=== PATIENT | male | born 1975 | race Caucasian/White ===

== ENCOUNTER 2022-09-27 01:42 | Emergency (ER) | payer OTHER, SELFPAY ==
[2022-09-27 01:50] VITALS: BP 126/80; PULSE 70; RESP 18; TEMP 36.6; O2SAT 99
--- NOTE | 2022-09-27 01:51 | ED_ITS ---
HPI - URI/Sore Throat General Chief Complaint: Upper Respiratory Symptoms Stated Complaint: THROAT HURTS Time Seen by Provider: 09/27/22 01:50 History of Present Illness HPI Narrative: Patient complains of sore throat for the past 1 week. Worsening in the past couple of days. No trouble breathing. Hurts to eat and swallow. Has had some congestion as well. Has had mild cough as well. Still has his tonsils. No known sick contacts Related Data Previous Rx's Medication Instructions Recorded amoxicillin 500 mg capsule 500 mg PO BID #14 caps 09/27/22 Allergies Allergy/AdvReac Type Severity Reaction Status Date / Time No Known Drug Allergies Allergy Verified 09/27/22 02:02 Review of Systems Review of Systems Narrative: GENERAL: Denies chills, fatigue, malaise, fever, sweats. HEENT: Denies sinus pain, ear pain, positive nasal congestion and sore throat RESPIRATORY: Denies dyspnea, positive cough CARDIOVASCULAR: Denies chest pain, palpitations GASTROINTESTINAL: Denies nausea, vomiting, abdominal pain : Denies dysuria, frequency, hematuria MUSCULOSKELETAL: denies muscle or bony pain SKIN: Denies rash, skin lesions NEUROLOGIC: Denies weakness, numbness ROS Unobtainable: All systems reviewed & are unremarkable except as noted in HPI and below Exam Narrative Exam Narrative: GENERAL: in no distress, not toxic not dyspneic HEAD: Normocephalic. EYES: Pupils equal round No scleral icterus. ENT: Mucous membranes moist. There is bilateral symmetric pharyngeal erythema and edema without exudates. No midline shift. No tongue elevation no drooling no trismus no malocclusion NECK: Trachea midline. No stridor CARDIOVASCULAR: Regular rate and rhythm without murmurs RESPIRATORY: Clear to auscultation. Breath sounds equal bilaterally. No wheezes, rales, or rhonchi. NEURO: AOx4. SKIN: Warm and dry PSYCH: Not anxious, is cooperative Initial Vital Signs Initial Vital Signs: Vital Signs Temperature 98 F 09/27/22 01:50 Pulse Rate 70 09/27/22 01:50 Respiratory Rate 18 09/27/22 01:50 Blood Pressure 126/80 09/27/22 01:50 Pulse Oximetry 99 09/27/22 01:50 Oxygen Delivery Method 09/27/22 01:50 Course Course Course Narrative: No new issues during course of stay Orders Ordered: ED Orders 09/27/22 01:55 Throat Culture Stat Discontinued Medications Amoxicillin (Amoxicillin 250 Mg Capsule) 500 mg PO NOW ONE Stop: 09/27/22 01:51 Last Admin: 09/27/22 01:57 Dose: 500 mg Documented By: ION Reevaluation(s) Reevaluation #1: Reviewed with patient treatment plan and agrees. At this time suspicious for bacterial pharyngitis, will treat clinically. Culture takes 2 or 3 days. Referral for ENT given. He does have a family doctor as well to follow up with. Time: 01:58 Vital Signs Vital signs: Vital Signs - 8 hr 09/27/22 01:50 Temperature 98 F Pulse Rate 70 Respiratory Rate 18 Blood Pressure 126/80 Pulse Oximetry 99 Oxygen Delivery Method Room Air MDM - URI/Sore Throat Differential Diagnosis Differential diagnosis: Likely viral infection, pharyngitis and other (Strep throat) MDM Narrative Medical decision making narrative: Appropriate for discharge home. Patient agrees to treat clinically for strep throat. Cultures takes 2 or 3 days. Return precautions reviewed with him. Airway intact. At this time likely not epiglottitis or tonsillar abscess or pharyngeal abscess. Exam reassuring. Return precautions reviewed with him. Referral for ENT given as well. Discharge Plan Departure Patient Disposition: Home Clinical Impression: Pharyngitis Instructions: DI for Pharyngitis/Tonsillopharyngitis -- Adult, Naloxone for Opi ate Overdose - WADOH Activity Restrictions/Additional Instructions: Keep well hydrated. See family doctor or call provided your nose throat office tomorrow for re-evaluation next week. No smoking. May continue ibuprofen for pain. Return if worse if any questions or concerns or if unable swallow or have any trouble breathing. Prescription for amoxicillin has been sent to your [facility] pharmacy in [place]. Be sure to pick that up this morning. Prescriptions: New amoxicillin 500 mg capsule 500 mg PO BID Qty: 14 0RF Referrals: Montana Del Cid MD [Physician] - Stand Alone Forms: Naloxone Standing Order WADOH Visit Report Forms: Patient Portal/API
[2022-09-27] MEDS: AMOXICILLIN 250 MG CAPSULE 500 MG PO (01:57)
== END 2022-09-27 02:15 | disposition home or self-care (01) ==
PROVIDERS: Emergency Provider Emergency Medicine
DX: J02.9 Acute pharyngitis, unspecified (principal)
CPT/HCPCS: 87070; 87077; 87185; 99283

== ENCOUNTER 2025-04-25 16:29 | Emergency (ER) | payer OTHER, SELFPAY ==
[2025-04-25 16:36] VITALS: BP 140/71; PULSE 74; RESP 20; TEMP 36.9; O2SAT 97; BMI 28.1
--- NOTE | 2025-04-25 16:50 | DI.CT.S_ITS ---
PROCEDURE: CT ABDOMEN PELVIS W CON INDICATIONS: r/o kidney stone TECHNIQUE: After the administration of intravenous contrast, axial sections acquired from the lung bases to the pubic symphysis. Coronal and sagittal reformats were performed. For radiation dose reduction, the following was used: automated exposure control, adjustment of mA and/or kV according to patient size. COMPARISON: None. FINDINGS: Image quality: Diagnostic. Lower Chest: No significant findings. ABDOMEN: Liver: No solid mass. Gallbladder: No radiopaque gallstones or wall thickening. Biliary ducts: No biliary dilation. Pancreas: No ductal dilation. Spleen: Size is within normal limits. Adrenal Glands: No adrenal nodules. Kidneys and Ureters: No hydronephrosis. No solid mass. No complex renal cystic lesion which requires follow up. Stomach and Bowel: Multiple diverticula are seen in the colon. There is bowel wall thickening and inflammatory fat stranding surrounding a diverticulum in the sigmoid colon. No focal fluid collection or pneumoperitoneum. No signs bowel obstruction. Peritoneum: No abnormal intraperitoneal fluid. No free air. Ventral Wall: No significant ventral hernia. Abdominal Nodes: No retroperitoneal or mesenteric adenopathy by size criteria. Vessels: Aorta and inferior vena cava are normal in size. PELVIS: Pelvic Organs: Unremarkable. Bladder: Bladder is decompressed and not well evaluated. Pelvic Nodes: No enlarged lymph nodes. Miscellaneous: Small fat containing left inguinal hernia.. Bones: No aggressive osseous abnormality. IMPRESSION: Acute uncomplicated sigmoid diverticulitis. Approved by: Parminder Cha M.D. on 04/25/2025 at 16:46
[2025-04-25 17:13] LABS: Add Manual Diff / Slide Review NO; Basophils Absolute Auto 100 /uL (0-100); Basophils Percent Auto 0.8 % (0-2); Eosinophils Absolute Auto 200 /uL (0-450); Eosinophils Percent Auto 1.5 % (2-4); Hematocrit 45.7 % (41-53); Hemoglobin 15.9 g/dL (13.5-17.5); Lymphocytes Absolute Auto 2100 /uL (1100-4500); Lymphocytes Percent Auto 21.2 % (25-40); Mean Corpuscular HGB Conc 34.8 % (30-36); Mean Corpuscular Hemoglobin 30.5 PG (26-34); Mean Corpuscular Volume 87.4 fL (80-100); Monocytes Absolute Auto 800 /uL (0-900); Monocytes Percent Auto 7.7 % (3-14); Neutrophils Absolute Auto 6900 /uL (1500-7000); Neutrophils Percent Auto 68.8 % (50-75); Platelet Count 247 X10^3/uL (150-400); Red Blood Cell Count 5.23 X10^6/uL (4.5-5.9); Red Cell Distribution Width 13.2 % (11.6-14.8)
[2025-04-25 17:25] LABS: Alanine Aminotransferase 29 IU/L (<50); Albumin 4.6 g/dL (3.5-5.0); Albumin Globulin Ratio 1.5 (1.0-2.8); Alkaline Phosphatase 68 U/L (38-126); Aspartate Aminotransferase 30 IU/L (17-59); Bilirubin Total 1.1 mg/dL (0.2-1.3); Blood Urea Nitrogen 17 mg/dL (9-20); Calcium 8.9 mg/dL (8.4-10.2); Carbon Dioxide 27 mmol/L (22-32); Chloride 103 mmol/L (98-107); Estimated Glomerular Filt Rate > 60 mL/min (>60); Glucose 102 mg/dL (70-99); HEMOLYSIS 18 (0-50); Lipase 88 U/L (23-300); Potassium 4.3 mmol/L (3.4-5.1); Sodium 139 mmol/L (137-145); Total Protein 7.6 g/dL (6.3-8.2)
[2025-04-25 18:00] VITALS: BP 130/70; PULSE 74; RESP 18; O2SAT 98
[2025-04-25 18:14] LABS: Appearance Urine UA CLEAR; Bilirubin Urine UA NEGATIVE (NEGATIVE); Color Urine UA YELLOW; Glucose Urine UA NEGATIVE (Negative); Ketones Urine UA NEGATIVE (NEGATIVE); Leukocyte Esterase Urine UA NEGATIVE (NEGATIVE); Nitrite Urine UA NEGATIVE (Negative); Occult Blood Urine UA TRACE-INTACT (Negative); Protein Urine UA NEGATIVE (Negative); Specific Gravity Urine UA <=1.005 (1.000-1.035); Urobilinogen Urine UA 0.2 E.U./dL (0.2); pH Urine UA 5.5 (4.5-8.0)
[2025-04-25] MEDS: ONDANSETRON 4 MG/2 ML INJ IV (18:20)
[2025-04-25] MEDS: MORPHINE 4 MG/ML INJ IV (18:20)
--- NOTE | 2025-04-25 18:30 | ED_ITS ---
HPI - Abdominal Pain <Zamzam Andrade PA-C - Last Filed: 04/25/25 18:49> General Chief Complaint: Urogenital-Male Stated Complaint: kidney stones, abd pain Time Seen by Provider: 04/25/25 17:14 History of Present Illness HPI narrative: 49-year-old male with past medical history nephrolithiasis, gout presents to the ED with 1 week of lower abdominal pain. Patient has had multiple kidney stones in the past, states that his current symptoms seem very similar. Patient denies fever, chills, chest pain, shortness of breath, nausea, vomiting. Patient endorses lower abdominal pain, abdominal discomfort when urinating and defecating. Last bowel movement was last night, which patient describes as painful in the abdomen. Related Data Previous Rx's Medication Instructions Recorded amoxicillin 500 mg capsule 500 mg PO BID #14 caps 09/27/22 ciprofloxacin HCl 500 mg tablet 500 mg PO BID 5 days #10 tabs 04/25/25 metronidazole 500 mg tablet 500 mg PO Q8H 5 days #15 tabs 04/25/25 Allergies Allergy/AdvReac Type Severity Reaction Status Date / Time No Known Drug Allergies Allergy Verified 09/27/22 02:02 Review of Systems <Zamzam Andrade PA-C - Last Filed: 04/25/25 18:49> Constitutional Constitutional: Denies chills, Denies fatigue, Denies fever(s), Denies frequent falls, Denies lethargy and Denies weakness Eyes Eyes: Denies change in vision, Denies eye discharge, Denies irritation and Denies loss of vision ENT Ears, Nose, Mouth, and Throat: Denies change in voice, Denies dizziness, Denies neck pain, Denies sore throat and Denies throat swelling Cardiovascular Cardiovascular: Denies chest pain, Denies irregular heart rhythm, Denies lightheadedness, Denies palpitations, Denies dyspnea, Denies dyspnea on exertion and Denies orthopnea Respiratory Respiratory: Denies cough, Denies dyspnea, Denies dyspnea on exertion and Denies wheezing Gastrointestinal Gastrointestinal: Reports abdominal pain, Denies change in bowel habits, Denies diarrhea, Denies nausea and Denies vomiting Musculoskeletal Musculoskeletal: Denies neck pain and Denies numbness Integumentary/Breasts Skin/Breast: Denies pruritus, Denies erythema, Denies rash and Denies wounds Neurologic Neurologic: Denies behavioral changes, Denies confusion, Denies dizziness, Denies frequent falls, Denies loss of vision, Denies numbness and Denies weakness Psychiatric Psychiatric: Denies anxiety, Denies behavioral changes, Denies confusion, Denies depression, Denies homicidal ideation and Denies suicidal ideation Endocrine Endocrine: Denies fatigue, Denies flushing and Denies palpitations Hematologic/Lymphatic Hematologic/Lymphatic: Denies easy bruising Allergic/Immunologic Allergic/Immunologic: Denies urticaria, Denies throat swelling and Denies wheezing Patient History <Zamzam Andrade PA-C - Last Filed: 04/25/25 18:49> Social History Smoking Status: Never smoker Smoking Status: Never smoker Exam <Zamzam Andrade PA-C - Last Filed: 04/25/25 18:49> Narrative Exam Narrative: Const General:?cooperative, healthy appearing and comfortable [facility] Head:?normal to inspection Ears:?hearing grossly normal bilaterally Nose:?external nose normal Face and sinus:?normal facial exam and sinuses nontender Mouth:?oral mucosae normal Throat:?posterior oropharynx normal Eyes General:?appearance normal, both eyes and all related structures Neck Neck:?normal visual inspection and no lymphadenopathy noted Resp Effort & Inspection:?normal respiratory effort Auscultation:?clear to auscultation bilaterally Cardio Rate:?regular rate Rhythm:?regular rhythm GI Abdomen is soft, nondistended. Abdomen is tender to palpation in the lower quadrants, left greater than right. No CVA tenderness. Neuro General:?patient alert, patient awake and patient oriented x3 Initial Vital Signs Initial Vital Signs: Vital Signs Temperature 98.4 F 04/25/25 16:36 Pulse Rate 74 04/25/25 16:36 Respiratory Rate 20 04/25/25 16:36 Blood Pressure 140/71 04/25/25 16:36 Pulse Oximetry 97 04/25/25 16:36 Oxygen Delivery Method Room Air 04/25/25 16:36 <Florian Boyd MD - Last Filed: 04/25/25 18:56> Initial Vital Signs Initial Vital Signs: Vital Signs Temperature 98.4 F 04/25/25 16:36 Pulse Rate 74 04/25/25 16:36 Respiratory Rate 20 04/25/25 16:36 Blood Pressure 140/71 04/25/25 16:36 Pulse Oximetry 97 04/25/25 16:36 Oxygen Delivery Method Room Air 04/25/25 16:36 Course <Zamzam Andrade PA-C - Last Filed: 04/25/25 18:49> Orders Ordered: ED Orders 04/25/25 16:50 CT abdomen pelvis w con Stat 04/25/25 16:55 Complete Blood Count AUTO DIFF Stat Comprehensive Metabolic Panel Stat Lipase Stat 04/25/25 18:00 Urinalysis and Microscopic Stat Discontinued Medications Morphine Sulfate (Morphine 4 Mg/Ml Inj) 4 mg IV NOW ONE Stop: 04/25/25 17:57 Last Admin: 04/25/25 18:20 Dose: 4 mg Documented By: STONE Ondansetron HCl (Ondansetron 4 Mg/2 Ml Inj) 4 mg IV NOW PRN PRN Reason: Nausea And Vomiting Last Admin: 04/25/25 18:20 Dose: 4 mg Documented By: STONE Ondansetron HCl (Ondansetron 4 Mg Odt) 4 mg PO NOW PRN PRN Reason: Nausea And Vomiting Vital Signs Vital signs: Vital Signs - 8 hr 04/25/25 16:36 04/25/25 18:00 Temperature 98.4 F Pulse Rate 74 74 Respiratory Rate 20 18 Blood Pressure 140/71 130/70 Pulse Oximetry 97 98 Oxygen Delivery Method Room Air <Florian Boyd MD - Last Filed: 04/25/25 18:56> Orders Ordered: ED Orders 04/25/25 16:50 CT abdomen pelvis w con Stat 04/25/25 16:55 Complete Blood Count AUTO DIFF Stat Comprehensive Metabolic Panel Stat Lipase Stat 04/25/25 18:00 Urinalysis and Microscopic Stat Discontinued Medications Morphine Sulfate (Morphine 4 Mg/Ml Inj) 4 mg IV NOW ONE Stop: 04/25/25 17:57 Last Admin: 04/25/25 18:20 Dose: 4 mg Documented By: STONE Ondansetron HCl (Ondansetron 4 Mg/2 Ml Inj) 4 mg IV NOW PRN PRN Reason: Nausea And Vomiting Last Admin: 04/25/25 18:20 Dose: 4 mg Documented By: STONE Ondansetron HCl (Ondansetron 4 Mg Odt) 4 mg PO NOW PRN PRN Reason: Nausea And Vomiting Vital Signs Vital signs: Vital Signs - 8 hr 04/25/25 16:36 04/25/25 18:00 Temperature 98.4 F Pulse Rate 74 74 Respiratory Rate 20 18 Blood Pressure 140/71 130/70 Pulse Oximetry 97 98 Oxygen Delivery Method Room Air MDM - Abdominal Pain <Zamzam Andrade PA-C - Last Filed: 04/25/25 18:49> Lab Data 04/25/25 16:55 04/25/25 16:55 Labs: Lab Results 04/25/25 04/25/25 Range/Units 16:55 18:00 WBC 10.0 (4.5-11.0) X10^3/uL RBC 5.23 (4.5-5.9) X10^6/uL Hgb 15.9 (13.5-17.5) g/dL Hct 45.7 (41-53) % MCV 87.4 (80-100) fL MCH 30.5 (26-34) PG MCHC 34.8 (30-36) % RDW 13.2 (11.6-14.8) % Plt Count 247 (150-400) X10^3/uL Neut % (Auto) 68.8 (50-75) % Lymph % (Auto) 21.2 L (25-40) % [place] % (Auto) 7.7 (3-14) % Eos % (Auto) 1.5 L (2-4) % Baso % (Auto) 0.8 (0-2) % Neut # (Auto) 6900 (1721-0816) /uL Lymph # (Auto) 2100 (5274-2705) /uL [place] # (Auto) 800 (0-900) /uL Eos # (Auto) 200 (0-450) /uL Baso # (Auto) 100 (0-100) /uL Sodium 139 (137-145) mmol/L Potassium 4.3 (3.4-5.1) mmol/L Chloride 103 (98-107) mmol/L Carbon Dioxide 27 (22-32) mmol/L BUN 17 (9-20) mg/dL Creatinine 1.06 (0.66-1.25) mg/dL Estimated GFR > 60 (>60) mL/min BUN/Creatinine Ratio 16.0 (6-22) Glucose 102 H (70-99) mg/dL Calcium 8.9 (8.4-10.2) mg/dL Total Bilirubin 1.1 (0.2-1.3) mg/dL AST 30 (17-59) IU/L ALT 29 (<50) IU/L Alkaline Phosphatase 68 (38-126) U/L Total Protein 7.6 (6.3-8.2) g/dL Albumin 4.6 (3.5-5.0) g/dL Globulin 3.0 (1.7-4.1) g/dL Albumin/Globulin Ratio 1.5 (1.0-2.8) Lipase 88 (23-300) U/L Urine Color Yellow Urine Appearance Clear Urine pH 5.5 (4.5-8.0) Ur Specific [place] <=1.005 (1.000-1.035) Urine Protein Negative (Negative) Urine Glucose (UA) Negative (Negative) g/dL Urine Ketones Negative (NEGATIVE) Urine Occult Blood Trace-intact (Negative) Urine Nitrate Negative (Negative) Urine Bilirubin Negative (NEGATIVE) Urine Urobilinogen 0.2 (0.2) E.U./dL Ur Leukocyte Esterase Negative (NEGATIVE) Urine RBC None seen (0-5/HPF) Urine WBC None seen (0-5/HPF) Ur Squamous Epith Cells None seen (0-5/HPF) Urine Bacteria None seen (None) Ur Culture Indicated? Cult not indicated Vol Urine Centrifuged 10ml (spun) Point of care testing: Urine Dip Bedside Urine Glucose Negative Bedside Urine Bilirubin - Negative Bedside Urine Ketone - Negative Urine Specific [place] 1.005 Bedside Urine Occult Blood +/- Bedside Urine pH 5.5 Bedside Urine Protein +/- 15 Bedside Urine Urobilinogen - Negative Bedside Urine Nitrite - Negative Bedside Urine Leukocytes - Negative Esterase MDM Narrative Medical decision making narrative: 49-year-old male with past medical history nephrolithiasis, gout presents to the ED with 1 week of lower abdominal pain. Concern for nephrolithiasis versus diverticulitis versus appendicitis versus other intra-abdominal pathology versus UTI versus other. Will obtain labs, lipase, UA, CT abdomen pelvis. UA without UTI. Labs within normal limits. CT abdomen pelvis shows acute uncomplicated sigmoid diverticulitis. Discussed findings with patient. Antibiotics prescribed. Recommend clear fluid diet for the next 2 days, slowly advancing to a normal diet over the next 5 days. Recommend follow-up with PCP as soon as possible. ED return precautions discussed with patient. Patient verbalized understanding. Medical records reviewed: Yes <Florian Boyd MD - Last Filed: 04/25/25 18:56> Lab Data Labs: Lab Results 04/25/25 04/25/25 Range/Units 16:55 18:00 WBC 10.0 (4.5-11.0) X10^3/uL RBC 5.23 (4.5-5.9) X10^6/uL Hgb 15.9 (13.5-17.5) g/dL Hct 45.7 (41-53) % MCV 87.4 (80-100) fL MCH 30.5 (26-34) PG MCHC 34.8 (30-36) % RDW 13.2 (11.6-14.8) % Plt Count 247 (150-400) X10^3/uL Neut % (Auto) 68.8 (50-75) % Lymph % (Auto) 21.2 L (25-40) % [place] % (Auto) 7.7 (3-14) % Eos % (Auto) 1.5 L (2-4) % Baso % (Auto) 0.8 (0-2) % Neut # (Auto) 6900 (3162-6602) /uL Lymph # (Auto) 2100 (4356-1342) /uL [place] # (Auto) 800 (0-900) /uL Eos # (Auto) 200 (0-450) /uL Baso # (Auto) 100 (0-100) /uL Sodium 139 (137-145) mmol/L Potassium 4.3 (3.4-5.1) mmol/L Chloride 103 (98-107) mmol/L Carbon Dioxide 27 (22-32) mmol/L BUN 17 (9-20) mg/dL Creatinine 1.06 (0.66-1.25) mg/dL Estimated GFR > 60 (>60) mL/min BUN/Creatinine Ratio 16.0 (6-22) Glucose 102 H (70-99) mg/dL Calcium 8.9 (8.4-10.2) mg/dL Total Bilirubin 1.1 (0.2-1.3) mg/dL AST 30 (17-59) IU/L ALT 29 (<50) IU/L Alkaline Phosphatase 68 (38-126) U/L Total Protein 7.6 (6.3-8.2) g/dL Albumin 4.6 (3.5-5.0) g/dL Globulin 3.0 (1.7-4.1) g/dL Albumin/Globulin Ratio 1.5 (1.0-2.8) Lipase 88 (23-300) U/L Urine Color Yellow Urine Appearance Clear Urine pH 5.5 (4.5-8.0) Ur Specific [place] <=1.005 (1.000-1.035) Urine Protein Negative (Negative) Urine Glucose (UA) Negative (Negative) g/dL Urine Ketones Negative (NEGATIVE) Urine Occult Blood Trace-intact (Negative) Urine Nitrate Negative (Negative) Urine Bilirubin Negative (NEGATIVE) Urine Urobilinogen 0.2 (0.2) E.U./dL Ur Leukocyte Esterase Negative (NEGATIVE) Urine RBC None seen (0-5/HPF) Urine WBC None seen (0-5/HPF) Ur Squamous Epith Cells None seen (0-5/HPF) Urine Bacteria None seen (None) Ur Culture Indicated? Cult not indicated Vol Urine Centrifuged 10ml (spun) Point of care testing: Urine Dip Bedside Urine Glucose Negative Bedside Urine Bilirubin - Negative Bedside Urine Ketone - Negative Urine Specific [place] 1.005 Bedside Urine Occult Blood +/- Bedside Urine pH 5.5 Bedside Urine Protein +/- 15 Bedside Urine Urobilinogen - Negative Bedside Urine Nitrite - Negative Bedside Urine Leukocytes - Negative Esterase Discharge Plan Departure Patient Disposition: Home Clinical Impression: Diverticulitis Instructions: DI for Diverticulitis Activity Restrictions/Additional Instructions: You were evaluated in the ED today for abdominal pain. The CT scan shows diverticulitis, which is an infection in the colon. You are being prescribed 2 antibiotics for this, which have been sent to the [facility] in [place]. Please take them as prescribed. It is also recommended that you follow a clear liquid diet for the next 2 days, slowly advancing to a normal diet over the next 5 days. You may take Tylenol, ibuprofen for pain. Please follow-up with your PCP as soon as possible. Return to the ED if you have worsening symptoms. Prescriptions: New metronidazole 500 mg tablet 500 mg PO Q8H 5 Days Qty: 15 0RF ciprofloxacin HCl 500 mg tablet 500 mg PO BID 5 Days Qty: 10 0RF No Action amoxicillin 500 mg capsule 500 mg PO BID Qty: 14 0RF Stand Alone Forms: Patient Portal/API/Survey ED Sign-out <Florian Boyd MD - Last Filed: 04/25/25 18:56> Cosign ED Attending Cosignature Attestation: I was immediately available in the department for consultation. This documentation has been reviewed and I agree with assessment and plan. Supervised by Florian Boyd MD
[2025-04-25 18:33] LABS: Bacteria Urine None Seen; Culture Indicated Urine Cult Not Indicated; RBC Urine None Seen (0-5/HPF); Squamous Epithelial Cell Urine None Seen (0-5/HPF); Urine Volume 10mL (spun); WBC Urine None Seen (0-5/HPF)
== END 2025-04-25 18:39 | disposition home or self-care (01) ==
PROVIDERS: Emergency Medicine; Emergency Provider Student in an Organized Health Care Education/Training Program
DX: K57.92 Diverticulitis of intestine, part unspecified, without perforation or abscess without bleeding (principal); Z87.442 Personal history of urinary calculi
CPT/HCPCS: 36415; 74177; 80053; 81001; 81003; 83690; 85025; 96374; 96375; 99284; J2270; J2405; Q9967